=== PATIENT | female | born 1970 | race Caucasian/White ===

== ENCOUNTER 2017-05-09 21:41 | Emergency (ER) | payer OTHER ==
[~2017-05-09] VITALS: Ht 170.2 cm; Wt 59.0 kg
[~2017-05-09 21:41] MED LIST: CATAPRES0.2 M1 PO; CELEXA 20 MG TA20 M1 PO; CLARITIN10 MG PO; IBUPROFEN 800800 MG PO; MOBIC15 MG PO; NAPROSYN500 MG PO; NORCO 5-325 TA1 EACH PO; TRILEPTAL150 MG PO; VALIUM5 MG PO; VENTOLIN HFA 1818 GM INH; ZOLOFT25 MG PO
[2017-05-09] MEDS ORDERED: NAPROSYN500 MG PO (23:38)
[2017-05-09] MEDS ORDERED: ULTRAM 50MG TAB50 MG PO (23:38)
[2017-05-09 23:45] VITALS: BP 105/82
[2017-05-09] MEDS ORDERED: SENNA-DOCUSATE1 EACH PO (23:45)
[2017-05-09] MEDS ORDERED: NORCO 5-325 TA1 EACH PO (23:45)
== END 2017-05-09 23:50 | disposition home or self-care (01) ==
LOC: ER 21:41
DX: M70.22 Olecranon bursitis, left elbow (principal); J45.909 Unspecified asthma, uncomplicated; J44.9 Chronic obstructive pulmonary disease, unspecified; F32.9 Major depressive disorder, single episode, unspecified; G89.29 Other chronic pain; F17.210 Nicotine dependence, cigarettes, uncomplicated

== ENCOUNTER 2019-06-25 13:29 | Emergency (ER) | payer OTHER ==
[~2019-06-25] VITALS: Ht 170.2 cm; Wt 59.0 kg
[~2019-06-25 13:29] MED LIST changes: +SENNA-DOCUSATE1 EACH PO; +ULTRAM 50MG TAB50 MG PO
[2019-06-25] MEDS ORDERED: CLARITIN10 M3 PO (13:44)
[2019-06-25] MEDS ORDERED: PROAIR HFA8.5 GM INH (13:44)
[2019-06-25] MEDS ORDERED: MOBIC7.5 MG PO (14:24)
[2019-06-25] MEDS ORDERED: NORFLEX100 MG PO (14:24)
[2019-06-25 14:35] VITALS: BP 110/75
== END 2019-06-25 14:40 | disposition home or self-care (01) ==
LOC: ER 13:29
DX: S46.812A Strain of other muscles, fascia and tendons at shoulder and upper arm level, left arm, initial encounter (principal); M62.830 Muscle spasm of back; M54.6 Pain in thoracic spine; J44.9 Chronic obstructive pulmonary disease, unspecified; F32.9 Major depressive disorder, single episode, unspecified; G89.29 Other chronic pain; F17.210 Nicotine dependence, cigarettes, uncomplicated; X50.9XXA Other and unspecified overexertion or strenuous movements or postures, initial encounter; Y93.89 Activity, other specified; Y92.89 Other specified places as the place of occurrence of the external cause; Y99.8 Other external cause status